=== PATIENT | female | born 1955 | race Two or more races ===

== ENCOUNTER 2022-04-22 00:47 | Inpatient (IN) | payer OTHER ==
[~2022-04-22] VITALS: Ht 167.6 cm; Wt 76.2 kg
[2022-04-22] MEDS ORDERED: INDERAL XL80 MG PO (01:02)
[2022-04-22] MEDS ORDERED: METFORMIN HCL750 MG PO (01:02)
[2022-04-22] MEDS ORDERED: LIPITOR20 MG PO (01:03)
[2022-04-22] MEDS ORDERED: ZOLOFT100 MG PO (01:03)
== END 2022-04-24 14:13 | disposition home or self-care (01) | DRG 312 ==
LOC: ER 00:47 → SEC-K 17:04 → MEDJ 20:02 → MEDI 04-23 17:45
PROVIDERS: ADMIT Internal Medicine; ATTEND Internal Medicine
DX: I95.1 Orthostatic hypotension (principal); E11.9 Type 2 diabetes mellitus without complications; I10 Essential (primary) hypertension; E66.09 Other obesity due to excess calories; D72.829 Elevated white blood cell count, unspecified; Z85.3 Personal history of malignant neoplasm of breast; Z79.84 Long term (current) use of oral hypoglycemic drugs
CPT/HCPCS: 70544